=== PATIENT | female | born 1970 | race Caucasian/White ===

== ENCOUNTER 2020-06-26 17:08 | Observation (INO) | payer BC ==
[~2020-06-26] VITALS: Ht 162.6 cm; Wt 93.4 kg
--- NOTE | ~2020-06-26 | CON ---
[address] [address] CONSULTATION Name: CHRISTIAN MUKHERJEE Room: [address] Chiendu Elizabeth#: [id number] Admission: 06/26/20 Attend Phys: Letty Villavicencio MD Discharge: 06/27/20 Date of : 70 Report #: [id number] THIS REPORT FOR: cc: FAM - No family physician/PCP FAM - No family physician/PCP ~ Mark Hernandez MD [facility] INDICATION: Chest pain. HISTORY OF PRESENT ILLNESS: The patient is a very pleasant 49-year-old white female with no prior cardiac history. Two days ago, she had sharp focal pain in her left side in the rib area that was associated with loss of appetite and nausea. The patient awoke the following day yesterday. Yesterday, she felt pretty well. As the day progressed, she developed some more generalized discomfort throughout the left chest, described as a pressure sensation with radiation into the left axilla. The patient took her blood pressure and noted it to be elevated at 140/105. She presented to the Emergency Room and was admitted for further observation. EKG was unremarkable. Serial troponins x 3 are unremarkable. The patient is presently pain free and has resolution of her nausea and loss of appetite. She is without other complaint at this time. Cardiac risk factors include tobacco use of a half a pack daily and family history of premature coronary artery disease in her father. She denies any prior history of hypertension. She has no history of diabetes or dyslipidemia. PAST MEDICAL HISTORY: 1. Nephrolithiasis. 2. History of cholecystectomy. 3. Tubal ligation. 4. Hysterectomy. 5. Left knee arthroscopy. 6. 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 7. Basal cell carcinoma. 8. Melanoma. 9. Skin cancers, removed. FAMILY HISTORY: Positive for premature atherosclerotic coronary artery disease in her father. SOCIAL HISTORY: She smokes half a pack of cigarettes daily. She does not drink alcohol. ALLERGIES: None. CURRENT MEDICATIONS: None. REVIEW OF SYSTEMS: A 14-point review of [place] [address] CONSULTATION Name: CHRISTIAN MUKHERJEE Room: [address]#: [id number] Admission: 06/26/20 Attend Phys: Letty Villavicencio MD Discharge: 06/27/20 Date of : 70 Report #: [id number] PHYSICAL EXAMINATION: VITAL SIGNS: Blood pressure 128/78, pulse 73 and regular. GENERAL: This is a pleasant female, in no distress. Mood and affect appropriate. HEENT: Extraocular muscles intact. Mucous membranes are moist. NECK: Shows no jugular venous distention. There are no carotid bruits. CHEST: Reveals clear lung young without wheezes, rales or rhonchi. CARDIOVASCULAR: Reveals a regular rhythm, normal S1 and S2. I do not appreciate gallop or murmur. ABDOMEN: Reveals normal bowel sounds. The abdomen is soft, nontender. EXTREMITIES: Shows no edema. Peripheral pulses are 2+ and easily palpable. SKIN: Dry. LABORATORY DATA: A 12-lead EKG shows sinus rhythm with no significant ST segment or T-wave abnormality. Labs are reviewed. Troponins are unremarkable x 3 sets. IMPRESSION AND RECOMMENDATIONS: 1. Chest discomfort. The patient is ruled out for myocardial infarction. I would recommend outpatient stress testing. 2. Borderline hypertension. Blood pressure presently stable. We would follow clinically. 3. Tobacco use, cessation discussed and advised. 4. Family history of premature atherosclerotic coronary artery disease. By: [id number] Stacy Hernandez MD, FACC /nt
[~2020-06-26 17:08] MED LIST: BACTRIM DS TAB1 EACH PO; BENADRYL25 MG PO; MEDROLDOSEPACK PO
[2020-06-26 17:09] VITALS: BP 175/96
[2020-06-26 17:50] LABS: ABSOLUTE BASOPHILS 0.1 thou/uL (0.0-0.2); ABSOLUTE EOSINOPHILS 0.2 thou/uL (0.0-0.7); ABSOLUTE LYMPHOCYTES 2.8 thou/uL (0.8-5.3); ABSOLUTE MONOCYTES 0.7 thou/uL (0.0-1.2); ABSOLUTE NEUTROPHILS 6.1 thou/uL (1.6-8.1); BASOPHILS 0.8 %; EOSINOPHILS 2.1 %; HEMATOCRIT 39.2 % (37.0-47.0); HEMOGLOBIN 13.3 gm/dL (12.0-15.0); LYMPHOCYTES 27.9 %; MCH 30.4 pg (26.0-34.0); MCHC 33.9 g/dL (28.0-37.0); MCV 89.4 fL (80.0-100.0); MONOCYTES 7.4 %; NUCLEATED RBCS 0 /100WBC; PLATELET COUNT* 383 thou/uL (150-400); POLYS 61.8 %; RBC 4.39 mil/uL (4.20-5.00); RDW-CV 13.7 % (10.5-14.5); WBC 9.9 thou/uL (4.0-11.0)
[2020-06-26 18:02] LABS: CALCIUM 8.4 mg/dL (8.5-10.1); CREATININE 0.9 mg/dL (0.6-1.3); POTASSIUM 3.5 mmol/L (3.5-5.1)
[2020-06-26 18:09] LABS: ALBUMIN 3.2 g/dL (3.4-5.0); TOTAL BILIRUBIN 0.1 mg/dL (<0.1-1.0); TOTAL PROTEIN 6.9 g/dL (6.4-8.2)
[2020-06-26 20:57] VITALS: BP 163/94
[2020-06-26 21:00] VITALS: BP 141/80
[2020-06-27 01:08] VITALS: BP 114/67
[2020-06-27 04:32] VITALS: BP 125/66
[2020-06-27 08:00] VITALS: BP 128/78
[2020-06-27 11:04] LABS: CALCIUM 8.6 mg/dL (8.5-10.1); CREATININE 0.8 mg/dL (0.6-1.3); POTASSIUM 4.1 mmol/L (3.5-5.1)
[2020-06-27 11:07] LABS: MAGNESIUM 1.9 mg/dL (1.8-2.4); PHOSPHORUS* 3.8 mg/dL (2.5-4.9)
[2020-06-27 12:46] VITALS: BP 128/78
[2020-06-27 13:05] VITALS: BP 155/83
--- NOTE | 2020-06-27 13:19 | NUR ---
RECEIVED REPORT AROUND 0715. ASSUMED CARE. IV INTACT RIGHT AC. HEART MONITOR ATTACHED AT SR. PT LAYING IN BED THIS AM. ABLE TO BE UP ADLIB. PT STATED "NO" TO ANY PAIN. MEDS GIVEN PER MAR. HOURLY ROUNDING PERFORMED. DISCHARGE ORDERS RECEIVED. CARDIOLOGY SAW PT. OK WITH DISCHARGE. DISCHARGE PAPERWORK GIVEN TO PT. COMMUNICATED UNDERSTANDING. IV TAKEN OUT. HEART MONITOR OFF. PT LEFT UNIT VIA AMBULATORY WITH NURSING STAFF AND ALL BELONGINGS AT 1320.
--- NOTE | 2020-06-27 15:06 | EKG ---
[place] [address] ELECTROCARDIOGRAM REPORT Name: CHRISTIAN MUKHERJEE Room: [address]#: [id number] Admission: 06/26/20 Attend Phys: Letty Villavicencio, Discharge: 06/27/20 Date of : 70 Date of Service: 06/26/20 1713 Report #: [id number] THIS REPORT FOR: //name// [facility] ED Test Date: 2020-06-26 Test Time: 17:13:04 Pat Name: CHRISTIAN MUKHERJEE Department: Room: [facility] Gender: F Doughnut Fryer: RICK : 1970 Requested By: Oleg Sanchez Order Number: [id number] MD: Mark Hernandez Measurements Intervals [place] Rate: 75 P: 57 MT: 128 QRS: 17 QRSD: 88 T: 22 QT: 391 QTc: 437 Interpretive Statements Sinus rhythm Abnormal R-wave progression, early transition No previous ECG available for comparison Electronically Signed On 06-27-2020 15:06:45 DISHTANK OPERATOR by Mark Hernandez [email or web address] <ELECTRONICALLY SIGNED> By: Mark Hernandez MD, FACC 06/27/20 1506 1713 1713 Mark Hernandez MD, [facility] /EPI
== END 2020-06-27 13:20 | disposition home or self-care (01) ==
LOC: M.ERS 17:08 → M.TBA-ER 18:56 → M.2W 20:57
PROVIDERS: Emergency Medicine Emergency Medical Services; Internal Medicine; ADMIT Internal Medicine; ATTEND Internal Medicine
DX: R07.89 Other chest pain (principal); R42 Dizziness and giddiness; J81.1 Chronic pulmonary edema; I51.7 Cardiomegaly; M79.89 Other specified soft tissue disorders; D03.9 Melanoma in situ, unspecified; D04.9 Carcinoma in situ of skin, unspecified; F17.210 Nicotine dependence, cigarettes, uncomplicated; Z87.442 Personal history of urinary calculi; Z79.899 Other long term (current) drug therapy; Z20.828 Contact with and (suspected) exposure to other viral communicable diseases

== ENCOUNTER → 2020-07-12 | Outpatient (CLI) | payer BC ==
--- NOTE | 2020-07-12 15:44 | EXE ---
[place] [address] STRESS ECHOCARDIOGRAM Name: CHRISTIAN MUKHERJEE Room: [facility]#: [id number] Admission: 07/12/20 Attend Phys: Mark Hernandez, Discharge: Date of : 70 Date of Service: 07/12/20 1544 Report #: [id number] THIS REPORT FOR: cc: FAM - No family physician/PCP FAM - No family physician/PCP Mina Weiss MD [facility] ~ APPROVED REPORT Study performed: 07/12/2020 14:40:23 Exam: Stress Echocardiogram Indication: Chest pain , Dyspnea Patient Location: Out-Patient Stress Nurse: Maile Jenkins RN Supervising Physician: Mina Weiss MD Ht: 5 ft 4 in HR: 79 bpm BP: 140/89 mmHg Medical History Cardiac Risk Factors: Tobacco History (Current/Recent), FHX of CAD, HTN Procedure The patient underwent an Exercise Stress Test using the Jonathan Protocol. Blood pressure, heart rate, and EKG were monitored. An Echocardiogram was performed by hvac residential service technician in four stages in quad fashion. At peak stress, four selected images were obtained and placed side by side with resting images for comparison. Stress Test Details Stress Test: Exercise stress testing was performed using a Jonathan protocol. HR Resting HR: 79 bpm Max Heart Rate (APMHR): 171 bpm Max HR Achieved: 174 bpm Target HR (85% APMHR): 145 bpm % of APMHR: 101 Recovery HR: 90 bpm HR response to stress: Normal HR response to stress BP Resting BP: 140/89 mmHg Max BP: 241/95 mmHg Recovery BP: 164/[place] [address] STRESS ECHOCARDIOGRAM Name: CHRISTIAN MUKHERJEE Room: [facility]#: [id number] Admission: 07/12/20 Attend Phys: Mark Hernandez, Discharge: Date of : 70 Date of Service: 07/12/20 1544 Report #: [id number] BP response to stress: Normal blood pressure response to stress. ECG Resting ECG: Sinus Rhythm Stress ECG: Sinus Rhythm, nonspecific ST-T abnormalities ST Change: Upsloping ST depression Maximum ST Deviation: 0.5 mm Arrhythmia: None Recovery ECG: Sinus Rhythm, nonspecific ST-T abnormalities Recovery ST Change: Upsloping ST depression Recovery ST Deviation: 0.5 mm Recovery Arrhythmia: None Clinical Reason for Termination: Completed protocol Exercise duration: 7 min 33 sec Highest Stage Achieved: Stage 3: 3.4 mph at 14% grade. Exercise capacity: 9.4 METs Pre-Stress Echo The resting Echocardiogram showed normal left ventricular contractility with an estimated Ejection Fraction of about 55-60%. Post-Stress Echo The stress Echocardiogram showed normal left ventricular contractility with an estimated Ejection Fraction of about >70%. Compared to rest, there were no stress-induced wall motion abnormalities. Conclusion Clinical Response: Non-ischemic Exercise Capacity: Average Stress ECG Response: Equivocal Stress Echo Images: Non-ischemic low risk stress echo for predicting future cardiac events Other Information Study Quality: [place] [address] STRESS ECHOCARDIOGRAM Name: CHRISTIAN MUKHERJEE Room: [facility]#: [id number] Admission: 07/12/20 Attend Phys: Mark Hernandez, Discharge: Date of : 70 Date of Service: 07/12/20 1544 Report #: [id number] <Conclusion> low risk stress echo for predicting future cardiac events <ELECTRONICALLY SIGNED> By: Mina Weiss MD, FACC 07/12/20 1544 1544 154 Mina Weiss MD, FACC /INF
== END ==
LOC: M.CRD 14:19
PROVIDERS: ATTEND Internal Medicine Cardiovascular Disease
DX: R07.9 Chest pain, unspecified (principal)